=== PATIENT | male | born 1990 | race Caucasian/White ===

== ENCOUNTER 2016-07-26 | Emergency (ER) | payer SELFPAY ==
[~2016-07-26] VITALS: Ht 162.6 cm; Wt 68.0 kg
[2016-07-26 03:18] VITALS: BP 158/53
== END 2016-07-26 03:45 | disposition home or self-care (01) ==
LOC: ER 03:35
DX: N48.1 Balanitis (principal)
CPT/HCPCS: 99283; Z7610